=== PATIENT | male | born 1990 | race Caucasian/White ===

== ENCOUNTER 2020-07-09 14:07 | Outpatient (REF) | payer OTHER, SELFPAY | END 2020-07-09 14:08 | disposition home or self-care (01) | LOC: HO.LAB 14:07 | PROVIDERS: Visit Provider Internal Medicine | DX: Z20.822 Contact with and (suspected) exposure to COVID-19 (principal) | CPT/HCPCS: 36415; C9803; U0003; U0005 ==

== ENCOUNTER 2020-08-26 18:39 | Emergency (ER) | payer SELFPAY ==
[2020-08-26 18:49] VITALS: BP 128/73; BP 138/59; PULSE 66; PULSE 80; RESP 17; TEMP 36.9; O2SAT 95; O2SAT 98; BMI 27.8
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
[2020-08-26] MEDS: oxyCODONE HCl Immed Release 5 MG TABLET PO (19:49)
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
== END 2020-08-26 20:40 | disposition home or self-care (01) ==
PROVIDERS: Emergency Provider Internal Medicine
DX: S22.32XG Fracture of one rib, left side, subsequent encounter for fracture with delayed healing (principal); V49.60XD Unspecified car occupant injured in collision with unspecified motor vehicles in traffic accident, subsequent encounter
CPT/HCPCS: 99283; 99284

== ENCOUNTER 2020-08-27 15:05 | Emergency (ER) | payer SELFPAY ==
[2020-08-27 15:17] VITALS: BP 116/86; BP 130/67; PULSE 100; PULSE 109; RESP 14; TEMP 36.7; O2SAT 97; BMI 37.1
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
== END 2020-08-27 15:50 | disposition left against medical advice (07) ==
PROVIDERS: Emergency Provider Emergency Medicine
DX: M79.10 Myalgia, unspecified site (principal)
CPT/HCPCS: 99283

== ENCOUNTER 2022-07-24 05:45 | Day surgery (SDC) | payer MEDICAID, SELFPAY ==
[2022-07-24] VITALS (13 sets, daily range): BP systolic 103–163; BP diastolic 35–95; PULSE 78–107; RESP 12–20; TEMP 36.4–37.2; O2SAT 93–99; BMI 42.7
--- NOTE | 2022-07-24 | ECG_ITS ---
Test Reason : overdose Blood Pressure : / mmHG Vent. Rate : 090 BPM Atrial Rate : 090 BPM P-R Int : 144 ms QRS Dur : 098 ms QT Int : 362 ms P-R-T Axes : 028 008 018 degrees QTc Int : 442 ms Normal sinus rhythm Normal ECG No previous ECGs available Referred By: Generic ED Physician Electronically Signed By:Irving Powers
--- NOTE | ~2022-07-24 | XR_ITS ---
EXAMINATION: XR SOFT TISSUE NECK CLINICAL INDICATION: Difficulty swallowing. COMPARISON: None TECHNIQUE: 2 views of the soft tissue neck were obtained. FINDINGS: Soft tissue films of the neck demonstrate a normal larynx, pharynx and upper trachea. No soft tissue swelling or opaque foreign body is demonstrated. XR/XR soft tissue neck IMPRESSION: Unremarkable examination.
--- NOTE | 2022-07-24 06:24 | MHC.EDTECH ---
pt brought to room from waiting room, changed over in to hospital gown, put on heart monitor, vitals completed, ekg completed. pt comfortable at this time will continue to monitor.
--- NOTE | 2022-07-24 07:15 | ED.GENADULT ---
HPI - General Adult General Chief complaint: Overdose Stated complaint: general med Time Seen by Provider: 07/24/22 07:14 Source: patient Mode of arrival: ambulatory Limitations: no limitations History of Present Illness HPI narrative: 31-year-old male with no major medical problems presents with difficulty swallowing. Patient reports around midnight ingesting 2 bags a PCP with the cellophane on. Since that time, he feels like they are stuck in his neck. He is having difficulty swallowing and controlling his secretions. Denies any difficulty breathing. Patient describes the symptoms as severe. They do not radiate. There is no clear relieving features. It is exacerbated by attempting to swallow. Patient has not had any liquid in several hours. Patient is requesting an x-ray. Related Data Home Medications Medication Instructions Recorded Confirmed No Known Home Meds 07/24/22 07/24/22 Allergies Allergy/AdvReac Type Severity Reaction Status Date / Time seafood Allergy Anaphylaxis Verified 07/24/22 14:08 Review of Systems Review of Systems: CONSTITUTIONAL: Denies weight loss, fever and chills. HEENT: Denies changes in vision and hearing. RESPIRATORY: Denies SOB and cough. CV: Denies palpitations no CP. GI: Denies abdominal pain, nausea, vomiting and diarrhea. : Denies dysuria and urinary frequency. MSK: Denies myalgia and joint pain. SKIN: Denies rash and pruritus. NEUROLOGICAL: Denies headache and syncope. PSYCHIATRIC: Denies recent changes in mood. Denies anxiety and depression. All other ROS are negative unless in HPI PMFSH Past Medical History Medical History (Updated 07/24/22 @ 14:09 by Muna Kate RN) Asthma Deaf No known health problems Social History Social History Alcohol intake: unknown Patient Tobacco Use Status: Current everyday Tobacco user Use of substances other than those prescribed or required for medical reasons: Unknown Substance Use Type Other:: pcp Are you DNR?: No Advance Directives: No Advance Directives Information Provided: No Recently lost weight without trying: No Nutrition Risks: No Nutritional Risk Physical Exam ED Vital Signs: Vital Signs - 24 hr 07/24/22 05:55 07/24/22 06:14 07/24/22 07:21 Temperature 97.9 F 98.4 F 98.9 F Pulse Rate 107 H 85 99 Respiratory Rate 18 13 12 Blood Pressure 160/79 H 135/86 139/82 Pulse Oximetry 97 96 98 Oxygen Delivery Method Room Air Room Air Room Air Oxygen Flow Rate 07/24/22 10:00 07/24/22 13:15 07/24/22 14:02 Temperature 97.7 F 98 F 98 F Pulse Rate 93 78 89 Respiratory Rate 16 16 20 Blood Pressure 122/95 H 135/88 163/78 H Pulse Oximetry 97 99 97 Oxygen Delivery Method Room Air Room Air Room Air Oxygen Flow Rate 07/24/22 15:04 07/24/22 15:19 07/24/22 15:34 Temperature 97.6 F Pulse Rate 98 82 79 Respiratory Rate 16 12 14 Blood Pressure 106/61 105/56 L 103/57 L Pulse Oximetry 93 97 97 Oxygen Delivery Method Simple Mask Simple Mask Simple Mask Oxygen Flow Rate 6 3 3 07/24/22 15:49 Temperature Pulse Rate 84 Respiratory Rate 14 Blood Pressure 109/58 L Pulse Oximetry 98 Oxygen Delivery Method Simple Mask Oxygen Flow Rate 3 BMI result Body Mass Index 42.7 GEN: Well developed, no acute distress, alert, oriented HEENT: Normocephalic, atraumatic, normal external ears, nose appears normal, no oropharyngeal edema or exudates Eyes: Normal to appearance Neck: Supple, no lymphadenopathy Respiratory: Talks in complete sentences, no respiratory distress, clear to auscultation bilaterally, no wheezing or stridor Cardiovascular: Regular rate and rhythm, no murmurs rubs or gallops Abdomen: Soft, nontender, nondistended, no guarding, no rebound Back: No CVA tenderness Extremities: No clubbing cyanosis or edema Neurologic: No focal neurologic deficits, cranial nerves 2-12 intact, strength is 5/5 bilaterally, gait normal Skin: No rash Course Course Course Narrative: 31-year-old male status post ingestion PCP 2 bags with a sensation of being stuck in his throat. He is having no difficulty breathing. Saturations are normal. There is no wheezing or stridor. He has no acute respiratory distress. At this time, we will obtain a soft tissue x-ray, insert IV, attempt glucagon and Reglan with IV fluids. If unsuccessful, we will contact Gastroenterology for possible emergent endoscopy to retrieve and/or push foreign body further down. Reevaluation(s) Reevaluation #1: Patient will be going with Dr. Toure to endoscopy later today. Time: 11:16 Medications Administered Discontinued Medications Generic Name Dose Route Start Last Admin Trade Name Garo PRN Reason Stop Dose Admin Glucagon 1 mg 07/24/22 07:19 07/24/22 07:47 Glucagon,Human Recombinant 1 Mg/Ml Vial IVPUSH 07/24/22 07:20 1 mg ONCE ONE Administration Sodium Chloride 1,000 mls @ 999 mls/hr 07/24/22 07:30 07/24/22 10:15 Ns IV 07/24/22 08:30 Infused .Q1H1M YAYO Infusion Metoclopramide HCl 10 mg 07/24/22 07:19 07/24/22 07:46 Metoclopramide Hcl 10 Mg/2 Ml Vial IVPUSH 07/24/22 07:20 10 mg ONCE ONE Administration Morphine Sulfate 2 mg 07/24/22 11:09 07/24/22 11:19 Morphine Sulfate 2 Mg/Ml Cartridge IVPUSH 07/24/22 11:10 2 mg ONCE ONE Administration Protocol Ondansetron HCl 4 mg 07/24/22 11:09 07/24/22 11:19 Ondansetron Hcl 4 Mg/2 Ml Vial IVPUSH 07/24/22 11:10 4 mg ONCE ONE Administration Medical Decision Making Medical Decision Making MDM Narrative: 31-year-old male status post ingestion PCP 2 bags with a sensation of being stuck in his throat. He is having no difficulty breathing. Saturations are normal. There is no wheezing or stridor. He has no acute respiratory distress. At this time, we will obtain a soft tissue x-ray, insert IV, attempt glucagon and Reglan with IV fluids. If unsuccessful, we will contact Gastroenterology for possible emergent endoscopy to retrieve and/or push foreign body further down. Differential Diagnosis Differential Diagnoses: The differential diagnosis associated with the presentation includes (Foreign body impaction softeners, esophageal abrasion, dysphagia, odynophagia) Admission/Observation Consideration of admission/observation: Escalation of care including admission/observation considered Lab Data Labs: Lab Results 07/24/22 Range/Units 07:45 COVID-19 ([facility]) Negative (Negative) COVID-19 Clin Com See Note Independent Interpretation I performed an independent interpretation of an: EKG (Normal sinus rhythm heart rate 90, normal intervals, no acute ST elevations or depressions, normal EKG) and Plain X-Ray (soft tissue neck, no obvious obstruciton) Radiology Impression Discussion of test interpretation with radiology: I have reviewed the radiologist's reading. (IMPRESSION: Unremarkable examination. Dictated By:Rashid Arias MDSigned By:<Electronically signed by Rashid Arias MD in [place]>07/24/22 [id number]) Discharge Plan Discharge Clinical Impression: Esophageal foreign body Patient Disposition: Xfer Other Transfer Details: Day stay surgery Interventions: [place]-Suicide Risk Severity Scale Last Done: 07/24/22 08:12 Discharge Date/Time: 07/24/22 13:49
[2022-07-24] MEDS: 0.9 % Sodium Chloride 1,000 ML 999 ML IV (07:46)
[2022-07-24] MEDS: Metoclopramide HCl 10 MG/2 ML VIAL IVPUSH (07:46)
[2022-07-24 08:07] LABS: IDNOW Serial# 6674DD1D
[2022-07-24 08:08] LABS: COVID-19 Test Negative (Negative)
--- NOTE | 2022-07-24 08:10 | PC.NURSE ---
Pt is alert/oriented. Feels uncomfortable sensation in throat after ingesting 2 bags of PCP. Speaking full sentences. Appear anxious, abrupt and agitated at times. IV placed, COVID obtained and medicated as charted. Awaits xray, pt initially refused xray requesting abd xray as well however educated on pt on plan of care at this time, pt then agreeable. VSS. sat 98% on room air. Skin PWD.
--- NOTE | 2022-07-24 08:58 | P.CNGI_ITS ---
History of Present Illness Data of Consult Service Date: 07/24/22 Requesting physician: Boo Biggs Primary Care Provider: [facility] HPI Reason for consult: dysphagia 31 YM seen at [facility] on 07/24/22 with difficulty swallowing.? Patient reported ingesting 2 bags of PCP with the cellophane on around midnight on 07/24/22.? Pt complained of FB sensation in the throat and feels like the PCP bags are stuck in his neck.? On arrival, pt reported difficulty swallowing and controlling his secretions and denied any difficulty breathing.? He admitted to exacerbation of symptoms by attempting to swallow and denied having any liquids in several hours.? In the ED, pt was treated with IV morphine, anti emetics, metoclopramide and glucagon without significant improvement in his symptoms. GI consulted to evaluate for urgent EGD Review of Systems Review of Systems: CONSTITUTIONAL: Denies weight loss, fever and chills. HEENT: Denies changes in vision and hearing. RESPIRATORY: Denies SOB and cough. CV: Denies palpitations no CP. GI: Denies abdominal pain, nausea, vomiting and diarrhea. : Denies dysuria and urinary frequency. MSK: Denies myalgia and joint pain. SKIN: Denies rash and pruritus. NEUROLOGICAL: Denies headache and syncope. PSYCHIATRIC: Denies recent changes in mood. Denies anxiety and depression. All other ROS are negative unless in HPI PMFSH Past Medical History Medical History (Updated 07/24/22 @ 14:09 by Muna Kate RN) Asthma Deaf No known health problems Social History Social History Alcohol intake: unknown Patient Tobacco Use Status: Current everyday Tobacco user Meds Allergies Allergy/AdvReac Type Severity Reaction Status Date / Time seafood Allergy Anaphylaxis Verified 07/24/22 14:08 Home Medications Medication Instructions Recorded Confirmed Last Taken Type No Known Home Meds 07/24/22 07/24/22 Unknown History Physical Exam Vital Signs: Vital Signs: Last Vital Signs Temp 98.9 F 07/24/22 07:21 Pulse 99 07/24/22 07:21 Resp 12 07/24/22 07:21 BP 139/82 07/24/22 07:21 Pulse Ox 98 07/24/22 07:21 O2 Del Method 07/24/22 07:21 BMI result Body Mass Index 42.7 Const: General: no acute distress Nutritional Appearance: obese Orientation/consciousness: patient oriented x3 Limitations: other limitations (pt has difficulty hearing and is able to understand with lip reading) HEENT: Head: Yes normal to inspection Ears: hearing grossly normal b ilaterally Mouth: Normal oral and palatal mucosa present Eyes: Sclerae: sclerae normal Pupils: Equal, round and reactive pupils present Neck: Neck: Yes normal visual inspection Chest: Chest palpation & inspection: normal inspection of the chest Resp: Effort & Inspection: normal respiratory effort Auscultation: clear to auscultation bilaterally Cardio: Palpation: normal PMI Rate: regular rate Rhythm: regular rhythm Heart sounds: S1 normal heart sound present, S2 normal heart sound present and no murmurs GI: Palpation (GI): Soft to palpation, nontender and No hepatosplenomegaly present Auscultation: normal bowel sounds Rectal Exam - Male: Yes deferred Skin: General skin exam: no rashes or lesions noted Neuro: General: patient oriented x3, gait normal and moves all extremities Cranial nerves: Yes Equal, round and reactive pupils present Psych: Appearance: grossly normal Mental Status: mental status grossly normal Assessment and Plan (1) Esophageal foreign body: Status: Acute Plan 31 YM seen at [facility] on 07/24/22 with difficulty swallowing.? Patient reported ingesting 2 bags of PCP with the cellophane on around midnight on 07/24/22.? Pt complained of FB sensation in the throat and feels like the PCP bags are stuck in his neck.? On arrival, pt reported difficulty swallowing and controlling his secretions and denied any difficulty breathing.? He admitted to exacerbation of symptoms by attempting to swallow and denied having any liquids in several hours.? In the ED, pt was treated with IV morphine, anti emetics, metoclopramide and glucagon without significant improvement in his symptoms. RECOMMENDATIONS: Proceed with urgent upper endoscopy today - scheduled at 2:30 pm. Procedure and potential complications including bleeding, perforation, drug reaction aspiration were reviewed with the patient. Time Spent With Patient Time: Total time managing care of this patient today ____ minutes. Procedures Date of Service Date of Service: 07/24/22
--- NOTE | 2022-07-24 10:24 | PC.NURSE ---
Security to bedside to change pt over. Belongings to be taken home by dad. Plan for endoscopy today report given to SSS. Pt to be kept NPO
[2022-07-24] MEDS: ondansetron HCL 4 MG/2 ML VIAL IVPUSH (11:19)
[2022-07-24] MEDS: Morphine Sulfate 2 MG/ML CARTRIDGE IVPUSH (11:19)
--- NOTE | 2022-07-24 11:29 | MHC.RECOVRN ---
This policy writer typist met w/ patient, patient was alert, sitting up in bed. Patient reports has been using PCP for many years, at least 10. Patient reports daily use of smoking PCP. Patient states mother walked in room, prompted patient to swallow the PCP bags as patient states felt paranoid. Patient states no periods of recovery from PCP, patient agreeable to review recovery resources left at bedside, specifically [employer] info. Patient states feels bags in throat, causing pain, requesting drink. Patient reminded patient is awaiting further testing and RN reports NPO at this time.
--- NOTE | 2022-07-24 14:38 | P.OP_ITS ---
Operative Note Operative Note Date of Service: 07/24/22 Narrative: Pre-op diagnosis: dysphagia, esophageal FB Post-op diagnosis:?other (Gastritis, no esophageal FB seen) Surgeon: Gisel Rain MD Anesthesia:?MAC FLEXIBLE TRANSORAL UPPER GASTROINTESTINAL ENDOSCOPY WITH BIOPSIES Consent: Indications for the procedure and potential complications of bleeding, perforation, reaction to medications and missed diagnosis were discussed with the patient and informed consent was obtained. Instrument: Olympus GIF H 190 mid size upper endoscope Monitoring: Vital signs and clinical assessment, continuous EKG monitoring, Pulse oximetry, Carbon Dioxide monitoring and blood pressure monitoring were done throughout the procedure. Procedure: The patient was placed in the left lateral decubitis position and pre-procedure medications were administered and a bite block was placed. The endoscope was inserted into the mouth and advanced under direct vision to the third part of duodenum. A careful inspection was made as the upper endoscope was withdrawn including a retroflexed examination of the proximal stomach; Findings and interventions are described below. Findings: Larynx: Normal Esophagus: GE junction at 36 cms. 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 Stomach: Moderate diffuse gastric erythema. Biopsies were obtained from the a ntrum and body of the stomach. Grade 2 flap valve on retroflexed examination of the cardia. 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 STOMACH: Diffuse gastritis Pt's symptoms are likely due to throat irritation from ingestion of PCP packets - likely passed distally into the small intestines/colon with peristalsis. Plan: Letter will be sent with pathology results. Pt can be discharged home on a clear liquid diet today and advance to a soft diet in the am. Pt was advised to take Omeprazole 20 mg daily for 2 weeks. Above findings were reviewed with the patient. FU prn in GI if symptoms persist - further evaluation with barium swallow
--- NOTE | 2022-07-24 14:38 | P.BOP_ITS ---
Brief Operative Note Date of Service: 07/24/22 Pre-op diagnosis: dysphagia, esophageal FB Post-op diagnosis: other (Gastritis, no esophageal FB seen) Procedure: FLEXIBLE TRANSORAL UPPER GASTROINTESTINAL ENDOSCOPY WITH BIOPSIES Surgeon: Gisel Rain MD Anesthesia: MAC Was an Gluer And Slicer Hand used for this Procedure?: Yes Gluer And Slicer Hand: Melanie Auguste Estimated blood loss (mL): 0 Pathology: other (A. Gastric antrum, B. Gastric body) Condition: stable Disposition: PACU
== END 2022-07-24 17:22 | disposition home or self-care (01) ==
LOC: HO.ED 11:12 → HO.SSS 11:30
PROVIDERS: Internal Medicine Gastroenterology; Emergency Provider Emergency Medicine; Visit Provider Emergency Medicine
PROC: 0DJ08ZZ Inspection of Upper Intestinal Tract, Via Natural or Artificial Opening Endoscopic (ICD-10-PCS; CPT 43235; principal; 2022-07-24 14:30)
DX: T18.108A Unspecified foreign body in esophagus causing other injury, initial encounter (principal); R13.10 Dysphagia, unspecified; R09.89 Other specified symptoms and signs involving the circulatory and respiratory systems; Y92.9 Unspecified place or not applicable; K29.50 Unspecified chronic gastritis without bleeding; B96.81 Helicobacter pylori [H. pylori] as the cause of diseases classified elsewhere; H91.3 Deaf nonspeaking, not elsewhere classified; J45.909 Unspecified asthma, uncomplicated; F17.210 Nicotine dependence, cigarettes, uncomplicated; Z20.822 Contact with and (suspected) exposure to COVID-19
CPT/HCPCS: 43239; 70360; 87635; 88305; 88342; 93005; 96361; 96374; 96375; 99285; J1610; J2250; J2270; J2405; J2765

== ENCOUNTER 2022-07-25 02:26 | Emergency (ER) | payer MEDICAID, SELFPAY ==
[2022-07-25 02:30] VITALS: BP 142/75; PULSE 86; RESP 16; TEMP 36.6; O2SAT 95; BMI 42.3
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
--- OUTSIDE RECORDS SUMMARY | 2022-07-25 02:49 | XMS_ITS | Continuity of Care Document ---
:1990 Author Organization [facility] Address [address] [place] [address]- Care Team Providers Name Role Phone Juan C Barrios NP Primary Care Physician Encounter [facility] [facility] Date(s): 07/26/21 - 08/25/[address] [address]- Attending Physician: AdmAyaan colón Admitting Physician: Admtr, Ar8 Referring Physician: Admtr, Ar8 Allergies, Adverse Reactions, Alerts Substance Reaction Severity Status Seafood Active Immunizations Given and Recorded Vaccine Date Status Refusal Reason influenza virus vaccine, inactivated 07/26/21 Given influenza virus vaccine, inactivated 07/18/15 Given influenza virus vaccine, inactivated 09/06/13 Given SARS-CoV-2 (COVID-19) mRNA-1149 vaccine 11/04/20 Recorded tetanus/diphtheria/pertussis, acel(Tdap) 08/24/20 Given [...] 9:49:00 EST, EC Capsule, [facility]/pharmacy #[id number], Partial fill upon patient request if the prescription is for a schedule II opioid drug., 165, cm, 07/26/21 9:20:00 EST, Height Start Date: 07/26/21 Stop Date: 09/24/21 Status: Orderedsertraline 50 mg oral tablet 1 tablet = 50 mg, By Mouth, Daily, # 30 tablet, 1 Refills, Maintenance, 07/26/21 9:50:00 EST, Tablet, [facility]/pharmacy #[id number], Partial fill upon patient request if [...]
--- OUTSIDE RECORDS SUMMARY | 2022-07-25 02:49 | XMS_ITS | Continuity of Care Document ---
:1990 Author Organization [facility] Address [address] [place] [address]- Care Team Providers Name Role Phone Juan C Barrios NP Primary Care Physician Encounter [facility] Date(s): 07/26/21 - 09/25/[address] [address]- Attending Physician: Not on Staff, Attending MD Referring Physician: Juan C Barrios NP Allergies, Adverse Reactions, Alerts Substance Reaction Severity Status Seafood Active Immunizations Given and Recorded Vaccine Date Status Refusal Reason influenza virus vaccine, inactivated 07/26/21 Given influenza virus vaccine, inactivated 07/18/15 Given influenza virus vaccine, inactivated 09/06/13 Given SARS-CoV-2 (COVID-19) mRNA-3645 vaccine 11/04/20 Recorded tetanus/diphtheria/pertussis, acel(Tdap) 08/24/20 Given [...] Refills, Maintenance, 07/26/21 9:49:00 EST, EC Capsule, [facility]/pharmacy #[id number], Partial fill upon patient request if the prescription is for a schedule II opioid drug., 165, cm, 07/26/21 9:20:00 EST, Height Start Date: 07/26/21 Stop Date: 09/24/21 Status: Orderedsertraline 50 mg oral tablet 1 tablet = 50 mg, By Mouth, Daily, # 30 tablet, 1 Refills, Maintenance, 07/26/21 9:50:00 EST, Tablet, [facility]/pharmacy #[id number], Partial fill upon patient request if [...]
--- OUTSIDE RECORDS SUMMARY | 2022-07-25 02:49 | XMS_ITS | Continuity of Care Document ---
:1990 Author Organization [facility] Address [address] [place] [address]- Care Team Providers Name Role Phone Sophie LINARES, Juan C Primary Care Physician Encounter [facility] Date(s): 07/27/21 - 08/26/[address] [address]- Allergies, Adverse Reactions, Alerts Substance Reaction Severity Status Seafood Active Immunizations Given and Recorded Vaccine Date Status Refusal Reason influenza virus vaccine, inactivated 07/26/21 Given influenza virus vaccine, inactivated 07/18/15 Given influenza virus vaccine, inactivated 09/06/13 Given SARS-CoV-2 (COVID-19) mRNA-3879 vaccine 11/04/20 Recorded tetanus/diphtheria/pertussis, acel(Tdap) 08/24/20 Given [...] Refills, Maintenance, 07/26/21 9:49:00 EST, EC Capsule, [facility]/pharmacy #[id number], Partial fill upon patient request if the prescription is for a schedule II opioid drug., 165, cm, 07/26/21 9:20:00 EST, Height Start Date: 07/26/21 Stop Date: 09/24/21 Status: Orderedsertraline 50 mg oral tablet 1 tablet = 50 mg, By Mouth, Daily, # 30 tablet, 1 Refills, Maintenance, 07/26/21 9:50:00 EST, Tablet, [facility]/pharmacy #[id number], Partial fill upon patient request [...]
--- OUTSIDE RECORDS SUMMARY | 2022-07-25 02:49 | XMS_ITS | Continuity of Care Document ---
:1990 Author Organization [facility] Address [address] [place] [address]- Care Team Providers Name Role Phone Juan C Barrios NP Primary Care Physician Encounter [facility] Date(s): 09/03/20 - 10/13/[address] [address]- Attending Physician: Lizbeth Zamora MD Admitting Physician: Lizbeth Zamora MD Referring Physician: Juan C Barrios NP [...] Chronic low back pain(Confirmed) Active Depression(Confirmed) Active Social History Social History Type Response Smoking Status 10 or more cigarettes (1/2 p ack or more)/day in last 30 days; Other: 1-2 ppd; entered on: 10/20/18 Sex
--- OUTSIDE RECORDS SUMMARY | 2022-07-25 02:49 | XMS_ITS | Continuity of Care Document ---
:1990 Author Organization [facility] Address [address] [place] [address]- Care Team Providers Name Role Phone Sophie LINARES, Juan C Primary Care Physician Encounter [facility] Date(s): 08/02/21 - 09/01/[address] [address]- Allergies, Adverse Reactions, Alerts Substance Reaction Severity Status Seafood Active Immunizations Given and Recorded Vaccine Date Status Refusal Reason influenza virus vaccine, inactivated 07/26/21 Given influenza virus vaccine, inactivated 07/18/15 Given influenza virus vaccine, inactivated 09/06/13 Given SARS-CoV-2 (COVID-19) mRNA-2032 vaccine 11/04/20 Recorded tetanus/diphtheria/pertussis, acel(Tdap) 08/24/20 Given [...] Refills, Maintenance, 07/26/21 9:49:00 EST, EC Capsule, [facility]/pharmacy #[id number], Partial fill upon patient request if the prescription is for a schedule II opioid drug., 165, cm, 07/26/21 9:20:00 EST, Height Start Date: 07/26/21 Stop Date: 09/24/21 Status: Orderedsertraline 50 mg oral tablet 1 tablet = 50 mg, By Mouth, Daily, # 30 tablet, 1 Refills, Maintenance, 07/26/21 9:50:00 EST, Tablet, [facility]/pharmacy #[id number], Partial fill upon patient request [...]
--- OUTSIDE RECORDS SUMMARY | 2022-07-25 02:49 | XMS_ITS | Continuity of Care Document ---
:1990 Author Organization [facility] Address [address] [place] [address]- Care Team Providers Name Role Phone Sophie LINARES, Juan C Primary Care Physician Encounter [facility] Date(s): 09/13/20 - 10/13/[address] [address]- Attending Physician: Ayaan Sumner Admitting Physician: AdmtrAyaan Referring Physician: Admtr, Ar8 Allergies, Adverse Reactions, [...]
--- NOTE | 2022-07-25 02:57 | ED.GENADULT ---
HPI - General Adult General Chief complaint: General Medical Stated complaint: obstruction of throat/ difficulty breathing Time Seen by Provider: 07/25/22 02:57 Source: patient Mode of arrival: ambulatory Limitations: no limitations History of Present Illness HPI narrative: Patient swallowed 2 bags of PCP yesterday had endoscopy which showed no foreign body and slight irritation of esophagus comes here with multiple complaints with increased anxiety has slight subconjunctival hemorrhage left eye and feels that had difficulty in swallowing with pain in mid chest feels very anxious was eating otherwise today no vomiting Related Data Previous Rx's Medication Instructions Recorded omeprazole 20 mg capsule,delayed 20 mg PO DAILY 30 days #30 caps 07/24/22 release sucralfate 1 gram tablet 1 g PO BID #60 tabs 07/25/22 Allergies Allergy/AdvReac Type Severity Reaction Status Date / Time seafood Allergy Anaphylaxis Verified 07/24/22 14:08 Review of Systems Review of Systems: Yes all other systems are reviewed and are negative [facility] Past Medical History Medical History Asthma Deaf No known health problems Social History Social History Alcohol intake: unknown Patient Tobacco Use Status: Current everyday Tobacco user Smoked in Last 30 Days: Yes Use of substances other than those prescribed or required for medical reasons: Yes Substance Use Type: Crack/Cocaine Substance Use Type Other:: pcp Last Used Substance: Days (ago) Advance Directives: No Advance Directives Information Provided: Yes Physical Exam ED Vital Signs: Vital Signs - 24 hr 07/25/22 02:30 Temperature 98 F Pulse Rate 86 Respiratory Rate 16 Blood Pressure 142/75 H Pulse Oximetry 95 Oxygen Delivery Method Room Air BMI result Body Mass Index 42.3 Appearance: Alert. Oriented X3. No acute distress. Obese anxious Eyes: PERRLA, No Nystagmus ENT: Pharynx normal. Oral Mucosa moist no stridor Neck: Normal inspection. Neck supple. CVS: Normal heart rate and rhythm. Pulses normal. Respiratory: No respiratory distress. Equal air entry bilateral, no wheezing/rales/rhonchi Abdomen: Soft and nontender. Bowel sounds are present, Skin: Skin warm and dry. Normal skin color. Normal skin turgor. Extremities: No lower extremity edema. No calf tenderness Neuro: Oriented X 3. Medications Administered Discontinued Medications Generic Name Dose Route Start Last Admin Trade Name Garo PRN Reason Stop Dose Admin Al Hydroxide/Mg Hydroxide 30 ml 07/25/22 03:04 07/25/22 03:19 Magnesium Hydrox/Alum Hydrox 30 Ml Oral.Susp PO 07/25/22 03:05 30 ml ONCE ONE Administration Lidocaine HCl 15 ml 07/25/22 03:04 07/25/22 03:20 Lidocaine Hcl Viscous 2 % 15 Ml Solution MUCOUS MEM 07/25/22 03:05 15 ml ONCE ONE Administration Lorazepam 1 mg 07/25/22 03:04 07/25/22 03:19 Lorazepam 1 Mg Tablet PO 07/25/22 03:05 1 mg ONCE ONE Administration Medical Decision Making Medical Decision Making [facility] Narrative: Patient anxiety esophagitis with multiple complaints received lidocaine viscous Maalox and Ativan patient felt better slept overnight taking p.o. fluids will discharge patient home Discharge Plan Discharge Clinical Impression: Esophagitis, Anxiety Patient Disposition: Home, Self-Care Instructions: Anxiety (ED), Esophagitis (ED) Additional Instructions: Continue Prilosec Stop using drugs Drink plenty of fluids Sucralfate twice daily as prescribed Avoid fried and spicy food Prescriptions: New sucralfate 1 gram tablet 1 g PO BID Qty: 60 0RF No Action omeprazole 20 mg capsule,delayed release(DR/EC) 20 mg PO DAILY 30 Days Qty: 30 0RF Interventions: ED Discharge Assessment Last Done: 07/25/22 06:11 Discharge Date/Time: 07/25/22 06:10
[2022-07-25] MEDS: Magnesium Hydrox/Alum Hydrox 30 ML ORAL.SUSP PO (03:19)
[2022-07-25] MEDS: LORazepam 1 MG TABLET PO (03:19)
[2022-07-25] MEDS: Lidocaine HCl Viscous 2 % 15 ML SOLUTION MUCOUS MEM (03:20)
--- NOTE | 2022-07-25 03:55 | PC.NURSE ---
no apparent distress, patient is sleeping
--- NOTE | 2022-07-25 06:10 | PC.NURSE ---
discharge instructions given/explained to pt, ambulates safely/independently, no apparent distress, airway patent, no sob, all questions answered
== END 2022-07-25 06:10 | disposition home or self-care (01) ==
PROVIDERS: Emergency Provider Internal Medicine
DX: K20.90 Esophagitis, unspecified without bleeding (principal); F41.9 Anxiety disorder, unspecified; F17.200 Nicotine dependence, unspecified, uncomplicated; E66.9 Obesity, unspecified; Z68.41 Body mass index [BMI] 40.0-44.9, adult
CPT/HCPCS: 99283; 99284

== ENCOUNTER 2022-10-25 23:20 | Emergency (ER) | payer MEDICAID, SELFPAY ==
[2022-10-25 23:24] VITALS: BP 138/78; PULSE 98; RESP 18; TEMP 36.6; O2SAT 95; BMI 46.8
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
[2022-10-26 01:05] VITALS: BP 124/78; PULSE 65; RESP 18; O2SAT 99
[2022-10-26] MEDS: Ibuprofen 600 MG TABLET PO (01:11)
[2022-10-26] MEDS: Cyclobenzaprine HCl 5 MG TABLET PO (01:11)
== END 2022-10-26 01:25 | disposition home or self-care (01) ==
PROVIDERS: Emergency Provider Emergency Medicine
DX: S39.92XA Unspecified injury of lower back, initial encounter (principal); M79.10 Myalgia, unspecified site; V43.02XA Car driver injured in collision with other type car in nontraffic accident, initial encounter; Y93.9 Activity, unspecified; Y92.481 Parking lot as the place of occurrence of the external cause; Y99.9 Unspecified external cause status; Z79.899 Other long term (current) drug therapy
CPT/HCPCS: 99284